=== PATIENT | male | born 1985 | race Caucasian/White ===

== ENCOUNTER 2020-04-02 07:12 | Emergency (ER) | payer BC, SELFPAY ==
[2020-04-02 07:13] VITALS: BP 158/101; PULSE 112; RESP 16; TEMP 36.8; O2SAT 98; BMI 38.5
--- NOTE | 2020-04-02 07:22 | ED.DCSUM_ITS ---
History of Present Illness Chief Complaint: Overdose Informant: Patient, Violent Crimes Detective Narrative: Patient reported did not show up for work this morning and police were sent as a welfare check. Patient was found unresponsive in his hotel room. EMS was called and they report patient woke up after getting the second dose of Narcan. At this time patient does admit to taking Xanax as well as 2 tabs of Percocet 30s. Patient denies that this was an attempt to hurt himself. He does not remember when he took the medication. - Past Medical History (1) Anxiety Status: Chronic Past Medical History - Allergies and Home Meds Allergies/Adverse Reactions: Allergies No Known Allergies Allergy (Verified 04/02/20 07:16) Primary Care Physician: [facility] [STAFF PHYSICIAN] - As Needed Lives: Spouse/ Significant Other Smoking Status: Current some day smoker Review of Systems General: Denies: Chills, Fever Eyes: Denies: Visual changes - bilaterally ENT: Denies: Bilateral ear pain Cardiovascular: Denies: Chest pain Respiratory: Denies: Dyspnea, Cough Gastrointestinal: Denies: Abdominal pain, Vomiting, Diarrhea Genitourinary: Denies: Dysuria Musculoskeletal: Denies: Swelling, Extremity Pain Skin: Denies: Rash Neurological: Denies: Headache Hematologic: Denies: Easy bruising, Easy bleeding Allergy: Denies: Uticaria Physical Exam Vital Signs/Narrative: Vital Signs Temp Pulse Resp BP Pulse Ox 04/02/20 07:13 98.2 F 112 H 16 158/101 H 98 Inital Vital Signs reviewed: Yes General: Well nourished, Well developed Head: Normocephalic ENT: Moist mucous membranes Neck: Supple Cardiovascular: Regular rate, Regular rhythm Respiratory: No distress, CTA bilaterally Abdomen: Soft, Nontender, Normal bowel sounds Extremities: Nontender Skin: Normal color Neurological: Alert, Oriented x3, Normal Strength, Normal Sensation Psychological: Normal affect Diagnostic/Tx/Re-eval Laboratory Results 04/02/20 04/02/20 04/02/20 07:30 07:30 07:30 WBC 17.0 H RBC 5.10 Hgb 15.6 Hct 46.9 MCV 92.0 MCH 30.6 MCHC 33.3 RDW Std Deviation 42.4 RDW Coeff of Iavn 12.5 Plt Count 223 MPV 10.5 Immature Gran % (Auto) 0.700 Neut % (Auto) 89.2 H Lymph % (Auto) 5.0 L [place] % (Auto) 4.8 Eos % (Auto) 0.1 Baso % (Auto) 0.2 Absolute Neuts (auto) 15.2 H Absolute Lymphs (auto) 0.85 Nucleated RBC % 0 Sodium 133 L Potassium 4.5 Chloride 98 Carbon Dioxide 28.0 Anion Gap 7 BUN 21 H Creatinine 1.51 H Estim Creat Clear Calc 85.43 Est GFR (MDRD) Af Amer 69 Est GFR (MDRD) Non-Af 57 L BUN/Creatinine Ratio 13.9 Glucose 219 H Calcium 8.8 Total Bilirubin 0.30 Direct Bilirubin 0.13 AST 138 H ALT 171 H Alkaline Phosphatase 84 Total Protein 8.1 Albumin 4.6 Globulin 3.5 Acetaminophen Ethyl Alcohol < 3.0 04/02/20 07:30 WBC RBC Hgb Hct MCV MCH MCHC RDW Std Deviation RDW Coeff of [place] Plt Count MPV Immature Gran % (Auto) Neut % (Auto) Lymph % (Auto) [place] % (Auto) Eos % (Auto) Baso % (Auto) Absolute Neuts (auto) Absolute Lymphs (auto) Nucleated RBC % Sodium Potassium Chloride Carbon Dioxide Anion Gap BUN Creatinine Estim Creat Clear Calc Est GFR (MDRD) Af Amer Est GFR (MDRD) Non-Af BUN/Creatinine Ratio Glucose Calcium Total Bilirubin Direct Bilirubin AST ALT Alkaline Phosphatase Total Protein Albumin Globulin Acetaminophen < 2.0 L Ethyl Alcohol - Medical Decision Making Patient was observed for greater than 2 hours. Has had no further symptoms here. Blood work is reviewed and Tylenol level is negative. Patient be discharged and is referred to 180. ED Disposition - Plan for ED Patient: Disposition: Home or Assisted Living Diagnosis: Opioid overdose Instructions: ED Overdose, Opiate Referrals: [facility] [STAFF PHYSICIAN] - As Needed
[2020-04-02 07:39] LABS: Absolute Lymphocyte Count 0.85 X10^3/uL (0.83-4.51); Absolute Neutrophil Count 15.2 X10^3/uL (2.0-7.7); Basophil# 0.03 X10^3/uL; Basophil% 0.2 % (0-1); Eosinophil# 0.01 X10^3/uL; Eosinophils% 0.1 % (0-5); Hematocrit 46.9 % (40-54); Hemoglobin 15.6 g/dL (13.0-16.5); Lymphocyte # 0.85 X10^3/ul (4.0); Mean Corp Hgb Conc 33.3 g/dL (32-36); Mean Corpuscular Hgb 30.6 pg (27.0-32.0); Mean Platelet Vol. 10.5 fl (6.2-12.0); Monocyte# 0.81 X10^3/uL; Monocyte% 4.8 % (0-10); NRBC Flagged by Analyzer 0 % (0-5); Neutrophil % 89.2 % (47-70); Platelet Count 223 K/mm3 (150-450); RBC Distribution Width CV 12.5 % (11.6-14.6); RBC Distribution Width SD 42.4 fl (35.1-43.9)
[2020-04-02 07:55] LABS: Alcohol, Blood (Medical)-Serum < 3.0 mg/dL
[2020-04-02 07:56] LABS: AST(SGOT) 138 U/L (15-37); Alanine Aminotransfer ALT/SGPT 171 U/L (16-61); Albumin, Serum 4.6 g/dL (3.2-5.0); Alkaline Phosphatase 84 U/L (45-117); Anion Gap 7 (5-15); BUN 21 mg/dL (7-18); BUN/Creat Ratio 13.9 RATIO (10-20); Bilirubin, Direct 0.13 mg/dL (0.00-0.30); Calcium,Total 8.8 mg/dL (8.5-10.1); Chloride 98 mmol/L (98-107); Creatinine, Serum 1.51 mg/dL (0.70-1.30); EST Glomerular Filtration Rate 57 mL/min (>60); Est Glom Filt Rate - Afr Amer 69 mL/min (>60); Estimated Creatinine Clearance 85.43 ml/min; Globulin 3.5 g/dL (2.2-4.2); Glucose 219 mg/dL (74-106); Potassium 4.5 mmol/L (3.5-5.1); Protein, Total 8.1 g/dL (6.4-8.2); Sodium Level 133 mmol/L (136-145)
[2020-04-02 08:21] LABS: Acetaminophen (Tylenol) Level < 2.0 ug/mL (10.0-30.0)
[2020-04-02 09:36] VITALS: BP 123/87; PULSE 95; RESP 18; O2SAT 94
[2020-04-02 10:25] VITALS: BP 135/85; PULSE 94; RESP 12; RESP 14; O2SAT 92
== END 2020-04-02 10:27 | disposition home or self-care (01) ==
PROVIDERS: Emergency Provider Emergency Medicine
DX: T40.2X1A Poisoning by other opioids, accidental (unintentional), initial encounter (principal); F41.9 Anxiety disorder, unspecified; F17.200 Nicotine dependence, unspecified, uncomplicated; Z79.899 Other long term (current) drug therapy
CPT/HCPCS: 80048; 80076; 80329; 82077; 85025; 99285; A4216; G0480